=== PATIENT | female | born 1945 | race Native Hawaiian/Other Pacific Islander ===

== ENCOUNTER 2022-06-12 15:45 | Emergency (ER) | payer OTHER ==
[~2022-06-12] VITALS: Ht 157.5 cm; Wt 76.2 kg
[2022-06-12 15:45] VITALS: BP 142/75; TEMP 98
[2022-06-12 16:58] LABS: PLATELET COUNT 296 K/uL (152-353)
[2022-06-12 17:01] LABS: POTASSIUM 3.9 mmol/L (3.6-5.2)
[2022-06-12] MEDS ORDERED: DONEPEZIL HYDRO10 M1 PO (18:33)
[2022-06-12] MEDS ORDERED: EUTHYROX88 MCG PO (18:36)
[2022-06-12] MEDS ORDERED: TRICOR145 M1 PO (18:40)
[2022-06-12] MEDS ORDERED: LISI20TA11 PO (18:42)
[2022-06-12] MEDS ORDERED: MEMA5TAB PO (18:44)
[2022-06-12] MEDS ORDERED: VENLAFAXINE150 M1 PO (18:46)
[2022-06-12] MEDS ORDERED: FEVERALL ADULT650 MG RE (18:55)
[2022-06-12] MEDS ORDERED: TYLENOL325 MG PO (18:57)
[2022-06-12] MEDS ORDERED: [UNRECOGNIZED DRUG - OTHER] PO (19:00)
[2022-06-12] MEDS ORDERED: BISACODYL LAXAT10 MG RE (19:01)
[2022-06-12] MEDS ORDERED: FLEET ENEMA RE (19:03)
[2022-06-12] MEDS ORDERED: GUAIFENESIN/DEX1 SYP PO (19:05)
[2022-06-12] MEDS ORDERED: IMODIUM A-D2 MG PO (19:07)
[2022-06-12] MEDS ORDERED: ANTI-DIARR1 MG/7.5 M PO (19:09)
[2022-06-12] MEDS ORDERED: MILK OF MA400 MG/5 M PO (19:10)
== END 2022-06-12 17:40 | disposition still patient (30) ==
LOC: ED 15:45
PROVIDERS: Internal Medicine
DX: R46.89 Other symptoms and signs involving appearance and behavior (principal); I10 Essential (primary) hypertension; Z11.52 Encounter for screening for COVID-19; Z04.6 Encounter for general psychiatric examination, requested by authority
CPT/HCPCS: 80053; 81000; 85027; 87088; 87635; 93005; 99283; U0003